=== PATIENT | male | born 1955 | race Caucasian/White ===

== ENCOUNTER 2023-12-28 15:45 | Emergency (ER) | payer MEDICARE, SELFPAY ==
[2023-12-28 16:38] VITALS: BP 132/93; PULSE 97; RESP 18; TEMP 36.7; O2SAT 98
--- NOTE | 2023-12-28 17:40 | XRR_ITS ---
PROCEDURE INFORMATION: Exam: XR Abdomen Exam date and time: 12/28/2023 6:44 PM Age: 68 years old Clinical indication: Bloating and constipation; Patient HX: Constipation; Abdominal pain/distention TECHNIQUE: Imaging protocol: Radiologic exam of the abdomen. Views: Frontal supine view of the abdomen. 1 View. COMPARISON: No relevant prior studies available. FINDINGS: Gastrointestinal tract: Mild increased colonic gas and stool, and particularly around the transverse colon and flexure region. Bowel gas pattern appears nonspecific. No small bowel dilatation or distension. Intraperitoneal space: No indication of free air. Surgical clips in the right upper quadrant. Bones/joints: Visualized osseous structures show no acute abnormality. Spondylotic change lumbar spine. Other findings: Psoas margins appear distinct. XR/XR KUB [id number] IMPRESSION: Nonspecific nonobstructive bowel gas pattern, with mild increased colonic gas and stool and particularly around the transverse colon and flexure region.
[2023-12-28 20:05] VITALS: BP 141/96; PULSE 98; RESP 16; O2SAT 100
[2023-12-28] MEDS: mineral oil 30 mL UDC PO (20:42)
[2023-12-28] MEDS: magnesium hydroxide 30 mL UDC PO (20:42)
[2023-12-28] MEDS: lactulose oral liq 20 gm/30 mL UDC PO (20:42)
[2023-12-28 20:47] VITALS: BP 152/116
[2023-12-28] MEDS: amlodipine 10 mg Tablet PO (22:35)
[2023-12-28 22:55] VITALS: BP 143/98; PULSE 87; RESP 16; O2SAT 98
[2023-12-28 22:56] VITALS: BP 143/98; PULSE 87; RESP 16; TEMP 36.7; O2SAT 98
--- NOTE | 2023-12-28 23:14 | ED_ITS ---
HPI - General Adult General: Chief complaint: General Medical Stated complaint: constipation Time Seen by Provider: 12/28/23 19:57 History of Present Illness: 68-year-old female who had hip surgery a t the beginning of the month. She states she has not had a significant bowel movement in 19 days. She feels bloated and full. She has pain at times. No fever. She has vomited a few times. She has used fleets enemas at home, as well as magnesium citrate and lactulose plus stool softeners. She has not had much luck in terms of a bowel movement she says. Related Data Previous Rx's Medication Instructions Recorded lactulose 10 gram/15 mL (15 mL) 20 g (30 mL) PO BID #600 mL 12/28/23 oral solution methylnaltrexone 12 mg/0.6 mL 12 mg (0.6 mL) SUBCUT DAILY #0.6 mL 12/28/23 subcutaneous solution (Relistor) Allergies Allergy/AdvReac Type Severity Reaction Status Date / Time No Known Allergies Allergy Verified 12/28/23 16:49 Physical Exam Const: COMMON NORMALS: no acute distress GENERAL APPEARANCE: cooperative; not ill appearing and not frail appearing HENMT: COMMON NORMALS: normocephalic, atraumatic and Normal external nose present HEAD & SCALP: normocephalic and atraumatic FACE & SINUS: normal facial exam and face symmetric NOSE: Normal external nose present Eye: COMMON NORMALS: Equal, round and reactive pupils present and EOMs intact bilaterally PUPIL: Yes Equal, round and reactive pupils present Neck/C-Spine: GENERAL: Yes trachea midline Chest: CHEST: Yes Symmetrical chest wall rise Resp: COMMON NORMALS: normal respiratory effort, No retractions, No use of accessory muscles and clear to auscultation bilaterally AUSCULTATION: clear to auscultation bilaterally Cardio: COMMON NORMALS: regular rate and regular rhythm RATE: regular rate RHYTHM: regular rhythm GI: COMMON NORMALS: Soft to palpation INSPECTION: Yes abdominal distension (Mild) AUSCULTATION: Yes normoactive bowel sounds PALPATION: Yes Soft to palpation, No Tenderness to palpation present (GI) and No Guarding due to palpation present (GI) Extremity: COMMON NORMALS: no pedal edema Neuro: BRANDON COMA SCALE: document GCS findings Carville coma scale eye opening: Spontaneous Brandon coma scale verbal response: Orientated Brandon coma scale motor response: Obey commands Carville coma scale total score: 15 SENSORY EXAM: Yes extremities (intact) Psych: COMMON NORMALS: speech normal SPEECH: Yes normal speech Skin: COMMON NORMALS: no rashes or lesions noted GENERAL SKIN EXAM: no rashes or lesions noted Course Vital Signs: Vital signs: Vital Signs Temperature 98.1 F 12/28/23 22:56 Pulse Rate 87 12/28/23 22:56 Respiratory Rate 16 12/28/23 22:56 Blood Pressure 143/98 12/28/23 22:56 Pulse Oximetry 98 12/28/23 22:56 Oxygen Delivery Me thod Room Air 12/28/23 20:05 MDM - General Adult Medical Decision Making Patient was given a combination of lactulose, mineral oil, and milk of magnesia here as well as a milk of molasses enema. She had a small output. She feels somewhat improved though. She has a nonobstructive bowel gas pattern on KUB with mild increased colonic gas and stool. She appears nontoxic. Vitals are normal. She would like to go home. She will go home on continued lactulose. Because she has been on opiates, we could try 1 dose of Relistor, although she has been off opiates for a few days. She knows to return for worsening symptoms despite treatment. Lab Data Radiology Impressions KUB X-Ray 12/28/23 17:40 IMPRESSION: Nonspecific nonobstructive bowel gas pattern, with mild increased colonic gas and stool and particularly around the transverse colon and flexure region. All radiology interpretation(s) finalized by discharge Discharge Plan Discharge Patient Disposition: Home Clinical Impression: Constipation Condition: Stable Prescriptions: New lactulose 10 gram/15 mL (15 mL) solution 20 g PO BID Qty: 600 0RF Relistor 12 mg/0.6 mL solution 12 mg SUBCUT DAILY Qty: 0.6 0RF Discharge Orders: Discharge ED (Routine); Ordered 12/28/23 Ordered By: Qamar Gonzales Referrals: Christopher Mena MD [Primary Care Provider] - 1-3 days Patient Instructions: Constipation (ED), Opioid Safety, Pain Management Coding Level of Care Code ED Medical Assisting Instructor for Sae Brooks
== END 2023-12-28 22:57 | disposition home or self-care (01) ==
PROVIDERS: Emergency Provider Emergency Medicine; PCP Internal Medicine
DX: K59.00 Constipation, unspecified (principal)
CPT/HCPCS: 74018; 99283